=== PATIENT | female | born 2000 | race Caucasian/White ===

== ENCOUNTER 2023-10-19 09:31 | Inpatient (IN) | payer MEDICAID ==
[2023-10-19] VITALS (11 sets, daily range): BP systolic 93–109; BP diastolic 54–73; PULSE 81–100; TEMP 97.3–99.1
[~2023-10-19] VITALS: Ht 149.9 cm; Wt 47.3 kg
[2023-10-19] MEDS ORDERED: LR 1,000 ML IV SCH (09:45)
[2023-10-19] MEDS ORDERED: miSOPROStol 100 MCG TAB VG PRN (09:45)
[2023-10-19 10:19] LABS: BASO % 0.5 % (0.0-2.0); EOS # 0.1 K/mm3 (0.0-0.7); EOS % 1.1 % (0.0-4.0); GRAN # 4.6 K/mm3 (1.4-6.5); GRAN % 70.2 % (42.2-75.2); HEMATOCRIT 40.4 % (37.0-47.0); HEMOGLOBIN 13.1 g/dl (12.5-16.0); LYMPH # 1.1 K/mm3 (1.2-3.4); LYMPH % 16.4 % (20.0-51.0); MEAN CELL VOLUME 97 fl (80.0-100.0); MEAN CORPUSCULAR HEMOGLOBIN 32 pg (27-31); MEAN CORPUSCULAR HGB CONC 32 g/dl (33.0-37.0); MEAN PLATELET VOLUME 11.5 fl (7.4-10.4); MONO # 0.7 K/mm3 (0.1-0.6); MONO % 11.3 % (1.7-9.3); PLATELET COUNT 320 K/mm3 (130-400); RED BLOOD COUNT 4.15 M/mm3 (4.10-5.30); REDCELL DISTRIBUTION WIDTH-CV 13.9 % (11.5-14.5)
[2023-10-19] MEDS ORDERED: TIROSINT112 MC1 PO (11:09)
[2023-10-19] MEDS ORDERED: QUALITY CHOICE1 TA7 (11:12)
[2023-10-19 11:27] LABS: PARTIAL THROMBOPLASTIN TIME 28.7 SECONDS (26.0-37.0); PROTHROMBIN TIME 10.9 SECONDS (9.7-12.8)
--- NOTE | 2023-10-19 11:35 | NUR ---
1000 PT PRESENTS TO UNIT FOR INDUCTION OF LABOR FOR DEMISE. PT AND FAMILY ORIENTED TO ROOM, POC IS DISCUSSED. PT VERBALIZES UNDERSTANDING AND HAS NO QUESTIONS AT THIS TIME.
--- NOTE | 2023-10-19 12:39 | NUR ---
Patricia WATERS updated on lab results, elevated D-Dimer result, cytotec placement at 1040 and uterine activity. states he will be on unit in about an hour.
[2023-10-19] MEDS ORDERED: Morphine 4 MG/ML VIAL IV PRN (14:45)
--- NOTE | 2023-10-19 15:00 | NUR ---
1425 BERTA WATERS ON UNIT, UPDATED ON PT STATUS, CONTRACTION PATTERN. ORDERS TO PLACE SECOND DOSE OF CYTOTEC AT 1440. RN RBVO.
--- NOTE | 2023-10-19 18:45 | NUR ---
CYTOTEC 100MCG PLACED
[2023-10-20] VITALS (57 sets, daily range): BP systolic 84–118; BP diastolic 49–78; PULSE 56–106; TEMP 98.1–99.5
[2023-10-20] MEDS ORDERED: ROPivacaine PF 0.2% 200 ML IV ONE (00:58)
--- NOTE | 2023-10-20 01:00 | NUR ---
Derrick.CARLEE BOG CUTTER into room for epidural placement. Pt moved to sit on edge of bed. See Anesthesia record. Single shot 010. Pt assisted to semi fowlers.
[2023-10-20] MEDS ORDERED: Ondansetron 4 MG/2 ML VIAL IV PRN (01:45)
[2023-10-20] MEDS ORDERED: diphenhydrAMINE 50 MG/ML 1 ML VIAL IV PRN (01:45)
[2023-10-20] MEDS ORDERED: ePHEDrine 50 MG/10 ML VIAL IV PRN (01:45)
[2023-10-20] MEDS ORDERED: diphenhydrAMINE 25 MG CAP PO PRN (01:45)
[2023-10-20] MEDS ORDERED: Naloxone 0.4 MG/ML VIAL IV PRN ×2 (01:45→13:00)
--- NOTE | 2023-10-20 01:45 | NUR ---
Pt relaxed, dozing.
--- NOTE | 2023-10-20 02:30 | NUR ---
Pt sleeping. Boyfriend curled up in bed with her.
[2023-10-20] MEDS ORDERED: MISOPROSTOL VG SCH (03:00)
--- NOTE | 2023-10-20 03:22 | NUR ---
Cytotech 300mcg placed.
--- NOTE | 2023-10-20 04:30 | NUR ---
Pt sleeping, arouses easily, denies feeling contractions.
--- NOTE | 2023-10-20 07:38 | NUR ---
SVE 2/60/-2 PER THIS RN. NO LEAKING OF FLUID, PT VS STABLE, PT REPORTING NO PAIN. ADMINISTRATION OF 300 MCG OF CYTOTEC VAGINALLY ADMINISTERED PER THIS RN. PT SIGNIFICANT OTHER AND PT MOTHER SUPPORTIVE AT BEDSIDE.
--- NOTE | 2023-10-20 09:30 | NUR ---
UNABLE TO TRACE CONTRACTIONS DUE TO MATERNAL POSITION AND HABITUS. PT VS STABLE, NOTIFIED OF PT STABLE STATUS. PT COMFORTABLE AND PARTNER SUPPORTIVE AT BEDSIDE.
[2023-10-20] MEDS ORDERED: LR & Oxytocin 500 ML IV SCH (11:30)
--- NOTE | 2023-10-20 12:23 | NUR ---
1220 PT CALLED OUT FOR INCREASED PRESSURE AND PAIN, SVE PER CHARGE NURSE, PT COMPLETE +3 STATION. CALLED BY ANNITA TO COME FOR DELIVERY. 1223 OF MALE INFANT, DELIVERED BY CHARGE NURSE, PETR. CORD CUT AND CLAMPED BY NATACHA.DESHAUN, BABY WRAPPED AND HANDED TO MOTHER TO HOLD. 1225 AT PT BEDSIDE 1233 OF PLACENTA PER , 1ST DEGREE VAGINAL LACERATION REPAIR BEGUN. PITOCIN BEGAN AND EPIDURAL PUMP STOPPED. 1240 PT AND PT ROOM CLEANED AFTER DELIVERY, MOTHER, INFANT GRANDPARENTS, AND PT PARTNER HOLDING BABY. PT VS STABLE, PT REPORTS NO PAIN, FUNDUS FIRM AT UMBILICUS, SCANT LOCHIA. PT REPOSITIONED COMFORTABLLY, ICE PAD PACK PLACED ON PERINEUM.
[2023-10-20] MEDS ORDERED: MOTRIN 800800 MG/TAB PO (12:49)
--- NOTE | 2023-10-20 12:50 | NUR ---
CHARGE NURSE PETR CALLED TRIM MECHANIC TO NOTIFY OF DEMISE DELIVERY.
[2023-10-20] MEDS ORDERED: Mag/Al Hydrox/Simeth Susp 30 ML CUP PO PRN (13:00)
[2023-10-20] MEDS ORDERED: Witch Hazel 50% Pads Bulk TUB TP PRN (13:00)
[2023-10-20] MEDS ORDERED: Ibuprofen 800 MG TAB PO SCH (13:00)
[2023-10-20] MEDS ORDERED: Measles/Mumps/Rubella Virus Vaccine Live w Diluent 0.5 ML VIAL SQ SCH (13:00)
[2023-10-20] MEDS ORDERED: Acetaminophen 500 MG TAB PO PRN (13:00)
[2023-10-20] MEDS ORDERED: Phenylephrine/Mineral Oil/Petrolatum 57 GM TUBE RC PRN (13:00)
[2023-10-20] MEDS ORDERED: Magnes Hydrox (MOM) 80 MG/ML 30 ML CUP PO PRN (13:00)
[2023-10-20] MEDS ORDERED: oxyCODONE 5 MG TAB PO PRN (13:00)
[2023-10-20] MEDS ORDERED: Loratadine 10 MG TAB PO PRN (13:00)
--- NOTE | 2023-10-20 13:30 | NUR ---
INFANT TO NURSERY PER MATERNAL REQUEST. PICTURES TAKEN, HEIGHT WAS 14 INCHES, WEIGHT WAS 2 LBS 3 OZ (980 GMS). PT REFUSED AUTOPSY OF INFANT AT THIS TIME. EPIDURAL CATHETAR REMOVED PER PCR.CRINGAN AND TOLERATED WELL. PT SITTING UP IN BED COMFORTABLE PER PT REPORT. PT NOT WANTING TO HOLD AT THIS TIME, PT VS STABLE, LOCHIA SCANT, FUNDUS FIRM AT UMBILICUS.
--- NOTE | 2023-10-20 13:54 | NUR ---
THIS RN NOTIFIES SOCIAL WORK ASSISTANT, BRIGID, FOR CONSULT. COSMETIC ASSEMBLER VERBALIZES SHE WILL BE COMING SOON.
--- NOTE | 2023-10-20 14:06 | NUR ---
PT DECIDED ON "[facility]," AND PT DECIDED ON CREMATION. ANNITA NOTIFIED [facility] AND CONFIRMED WITH ONLINE CONTENT EDITOR THERE.
--- NOTE | 2023-10-20 15:10 | NUR ---
[facility] notified of demise, [facility] referral number [id number]. Patient not a candidate for donation, we may release the body to the home.
--- NOTE | 2023-10-20 15:47 | NUR ---
SOCIAL CALLED PER ANNITA THAT PT IS IN ROOM AND READY FOR HER CONSULT DUE TO PT BEING IN RESTROOM WHEN BRIGID ARRIVED IN PT LABOR ROOM EARLIER. REEL SLITTER, BRIGID, NOTIFED THIS RN THAT SHE HAD JUST COME FROM CONSULT AT PT BEDSIDE. THIS RN ASKED BRIGID OVER THE PHONE ", DID YOU HAVE ANYTHING TO REPORT OR ANY CONCERNS?," AND SHE REPLIED "NO".
--- NOTE | 2023-10-20 15:56 | NUR ---
PT AND PT FAMILY CONFIRMED THAT THEY ARE READY FOR HOME TO COME TAKE INFANT FOR CREMATION AND SERVICES. CALL CONFIRMED PER ELIJAH EMPLOYEE AND ON THEIR WAY TO UNIT.
--- NOTE | 2023-10-20 16:09 | NUR ---
SW obtained referral for patient due to demise. SW presented to patient room to extend condolences and provided information pertaining to resources to patient and family. Patient and family declined needs at this time. Patient and family provided with case management contact information if they had any questions or needed any follow up care resources.
--- NOTE | 2023-10-20 16:47 | NUR ---
PASTOR LYMAN FROM [facility] ON UNIT. PT AND PT MOTHER VISITED AND HELD IN NURSERY AND PASTOR LYMAN DISCUSSED AND CREMATION PLANS AFTER LEAVING HOSPITAL. SAFELY SECURED WITH PASTOR LYMAN AND ESCOURTED OFF UNIT AT 1647. PT LISTENING AND RESPONDING WITH ONE WORD ANSWERS WHEN TALKED TO, WHEN THIS RN TALKED TO PT ABOUT HAVING SUPPORT AND MAKING SURE SHE HAS SOMEONE TO TALK TO PT NODDED IN UNDERSTANDING. PT VS STABLE, AMBULATORY BACK TO ROOM.
[2023-10-20] MEDS ORDERED: Sennosides/Docusate 8.6-50 MG TAB PO SCH (17:00)
[2023-10-20] MEDS ORDERED: traZODone 50 MG TAB PO PRN (21:00)
[2023-10-21 01:05] VITALS: BP 98/59; PULSE 78; TEMP 97.4
[2023-10-21] MEDS ORDERED: Rho(D) Imm Globulin 1,500 UNITS (300 MCG)/2 ML SYRINGE IV\\IM SCH (07:45)
[2023-10-21 08:09] VITALS: BP 102/66; BP 122/68; PULSE 68; PULSE 78; TEMP 98.2
[2023-10-21] MEDS ORDERED: TIROSINT137 MC1 PO (10:04)
== END 2023-10-21 10:42 | disposition home or self-care (01) | DRG 807 ==
LOC: LDR 09:31 → OB 10-20 14:00
PROVIDERS: ADMIT Obstetrics & Gynecology
PROC: 10E0XZZ Delivery of Products of Conception, External Approach (ICD-10-PCS; principal; 2023-10-20)
PROC: 3E033VJ Introduction of Other Hormone into Peripheral Vein, Percutaneous Approach (ICD-10-PCS; 2023-10-20)
PROC: 10907ZC Drainage of Amniotic Fluid, Therapeutic from Products of Conception, Via Natural or Artificial Opening (ICD-10-PCS; 2023-10-20)
PROC: 0UQMXZZ Repair Vulva, External Approach (ICD-10-PCS; 2023-10-20)
PROC: 3E0P7VZ Introduction of Hormone into Female Reproductive, Via Natural or Artificial Opening (ICD-10-PCS; 2023-10-20)
DX: O36.4XX0 Maternal care for intrauterine death, not applicable or unspecified (principal); Z37.1 Single stillbirth; O99.284 Endocrine, nutritional and metabolic diseases complicating childbirth; Z3A.30 30 weeks gestation of pregnancy; E03.9 Hypothyroidism, unspecified; O26.893 Other specified pregnancy related conditions, third trimester; O36.5930 Maternal care for other known or suspected poor fetal growth, third trimester, not applicable or unspecified; O77.0 Labor and delivery complicated by meconium in amniotic fluid; O70.0 First degree perineal laceration during delivery; Z79.890 Hormone replacement therapy; O99.334 Smoking (tobacco) complicating childbirth; F17.200 Nicotine dependence, unspecified, uncomplicated; Z87.442 Personal history of urinary calculi; Z67.41 Type O blood, Rh negative
CPT/HCPCS: J2270; J2590; J2791; J2795; J7120